=== PATIENT | male | born 2000 | race Hispanic/Latino ===

== ENCOUNTER 2022-10-31 00:12 | Emergency (ER) | payer SELFPAY ==
[~2022-10-31] VITALS: Ht 162.6 cm; Wt 70.0 kg
[2022-10-31 12:05] VITALS: BP 119/46
== END 2022-10-31 12:24 | disposition home or self-care (01) | DRG 605 ==
LOC: ED 00:12
DX: S51.812A Laceration without foreign body of left forearm, initial encounter (principal); F10.129 Alcohol abuse with intoxication, unspecified; W25.XXXA Contact with sharp glass, initial encounter